=== PATIENT | male | born 1960 | race African-American/Black ===

== ENCOUNTER 2024-08-03 15:15 | Emergency (ER) | payer OTHER, MEDICAID ==
[~2024-08-03] VITALS: Ht 175.3 cm; Wt 118.0 kg
[2024-08-03 15:18] VITALS: O2SAT 97
[2024-08-03] MEDS: SODIUM CHLORIDE 0.9% (SEPSIS BOLUS) IV ONE (15:47)
[2024-08-03] MEDS: VANCOMYCIN 1G PREMIX 200 ML IV ONE (15:52)
[2024-08-03 16:28] LABS: HEMATOCRIT. 32.9 % (42.0-52.0); HEMOGLOBIN. 10.7 g/dL (14.0-18.0); MEAN CORPUSCULAR HEMOGLOBIN 24.1 pg (28.0-32.0); MEAN CORPUSCULAR HGB CONC 32.4 g/dL (31.0-37.0); MEAN CORPUSCULAR VOLUME 74.5 fL (80.0-94.0); MEAN PLATELET VOLUME 9.6 fl (7.4-10.4); PLATELET 260 x1000/uL (130-400); RED BLOOD CELL COUNT 4.42 mill/uL (4.7-6.1); RED CELL DISTRIBUTION WIDTH 16.9 % (11.6-14.6); WHITE BLOOD COUNT 6.5 x1000/uL (4.5-11.0)
[2024-08-03 16:30] LABS: DIFFERENTIAL COMMENT 1
[2024-08-03 16:32] LABS: CHLORIDE 107 mEq/L (98-107); POTASSIUM 3.7 mEq/L (3.5-5.1); SODIUM 139 mEq/L (136-145)
[2024-08-03 16:33] LABS: CARBON DIOXIDE 21 mEq/L (21-32)
[2024-08-03 16:34] LABS: CALCIUM 8.9 mg/dL (8.7-10.4)
[2024-08-03 16:38] LABS: CREATININE 1.5 mg/dL (0.6-1.3); GLUCOSE 94 mg/dL (70-105)
[2024-08-03 16:39] LABS: PROTHROMBIN TIME 11.4 sec (9.6-11.0); TROPONIN I HIGH SENSITIVITY 15 ng/L (3.0-53); UREA NITROGEN BLOOD 17 mg/dL (9-23)
[2024-08-03 16:40] LABS: ALANINE AMINOTRANSFERASE 75 IU/L (10-49); ALBUMIN 3.9 g/dL (3.2-4.8); ASPARTATE AMINOTRANSFERASE 46 IU/L (<34)
[2024-08-03 16:41] LABS: BILIRUBIN DIRECT 0.2 mg/dL (<=3.0); BILIRUBIN TOTAL 0.5 mg/dL (0.1-1.0); PROTEIN TOTAL 7.5 g/dL (6.0-8.3)
[2024-08-03 20:42] VITALS: BP 130/90; PULSE 94; RESP 14; TEMP 37.05852; O2SAT 97
[2024-08-03 21:07] LABS: ANISOCYTOSIS 1+; PLATELET ESTIMATE NORMAL
[2024-08-03 21:08] LABS: HYPOCHROMASIA 1+; MICROCYTOSIS 2+
== END 2024-08-03 21:35 | disposition short-term general hospital (02) ==
LOC: ER 15:15 → CANBEDREQ 18:21 → ER 21:35
DX: A41.9 Sepsis, unspecified organism (principal); E11.9 Type 2 diabetes mellitus without complications; E78.00 Pure hypercholesterolemia, unspecified; I10 Essential (primary) hypertension; Z86.73 Personal history of transient ischemic attack (TIA), and cerebral infarction without residual deficits; D64.9 Anemia, unspecified
CPT/HCPCS: 99285; 96365; 71045; 80076; 80048; 83605; 85025; 85610; 87040; 84484; 87804 ×2; 36415; 84145; 93005; J3370; J7030